=== PATIENT | female | born 1995 | race Caucasian/White ===

== ENCOUNTER 2016-12-07 00:16 | Emergency (ER) | payer OTHER ==
[2016-12-07] MEDS ORDERED: ONDANSETRON 4 MG/2ML 2 ML VIAL ONE (02:05)
[2016-12-07] MEDS ORDERED: KETOROLAC TROMETHAMINE 30 MG/ML 1 ML VIAL ONE (02:06)
[2016-12-07 02:30] LABS: ABSOLUTE NEUTROPHIL COUNT 4.5 K/mm3 (1.8-7.7); BASO % 0.5 % (0.2-1.0); EOS % 0.5 % (0.9-2.9); HEMATOCRIT 43.8 % (37.0-47.0); HEMOGLOBIN 14.1 gm/l (12.0-16.0); IMM NEUT% 0.2 % (0-1); LYMPH # 1.6 (1.0-4.8); LYMPH % 24.5 % (15-45); MEAN CELL VOLUME 87.3 fl (81.0-99.0); MEAN CORPUSCULAR HEMOGLOBIN 28.1 pg (27.0-31.0); MEAN CORPUSCULAR HGB CONC 32.2 g/dl (33.0-37.0); MEAN PLATELET VOLUME 10.4 fl (7.4-10.4); MONO # 0.5 (0.0-0.8); MONO % 6.8 % (4-12); NEUT % 67.5 % (43-75); PLATELET COUNT 232 K/mm3 (130-400); RED CELL DISTRIBUTION WIDTH 12.4 % (11.5-14.5)
[2016-12-07 02:54] LABS: ALB/GLOB RATIO 1.3 (>1.0); CALCIUM 9.2 mg/dL (8.6-10.3)
[2016-12-07 03:09] LABS: PH,URINE 6.5 (5.0-8.0); URINE APPEARANCE CLEAR; URINE BILIRUBIN NEGATIVE (NEGATIVE); URINE BLOOD NEGATIVE (NEGATIVE); URINE COLOR AMBER; URINE GLUCOSE (UA) NEGATIVE (NEGATIVE); URINE LEUKOCYTE ESTERASE TRACE (NEGATIVE); URINE NITRITE NEGATIVE (NEGATIVE); URINE PROTEIN TRACE (NEGATIVE); URINE UROBILINOGEN 1 mg/dL (0-1 mg/dl)
[2016-12-07 03:22] LABS: URINE BACTERIA 2+; URINE EPITHELIAL CELLS 15-20 /hpf; URINE RBC 0-2 /hpf
[2016-12-07] MEDS ORDERED: CIPROFLOXACIN 500 MG TABLET ONE (03:27)
== END 2016-12-07 03:36 | disposition home or self-care (01) ==
LOC: ED 00:16
DX: N39.0 Urinary tract infection, site not specified (principal); R11.2 Nausea with vomiting, unspecified
CPT/HCPCS: 84703; 85025; 80053; 81001; 96375; 99283 ×2; 96374; A9270; J1885; J2405